=== PATIENT | male | born 1995 | race Caucasian/White ===

== ENCOUNTER 2019-05-08 15:25 | Emergency (ER) | payer OTHER ==
[2019-05-08] MEDS: HYDROCODONE/APAP (5/325) TAB PO (17:42)
[2019-05-08] MEDS: KETOROLAC 30 MG INJ IM (17:42)
== END 2019-05-08 19:04 | disposition home or self-care (01) ==
LOC: FTE 15:25
DX: M54.5 Low back pain (principal)
CPT/HCPCS: 99283; J1885